=== PATIENT | male | born 1980 | race Asian ===

== ENCOUNTER → 2023-01-14 09:11 | Outpatient (CLI) | payer OTHER, SELFPAY ==
[2023-01-14 10:41] LABS: Alanine Aminotransferase 52 IU/L (<50); Albumin 4.6 g/dL (3.5-5.0); Albumin Globulin Ratio 1.6 (1.0-2.8); Alkaline Phosphatase 74 U/L (38-126); Aspartate Aminotransferase 29 IU/L (17-59); Bilirubin Total 0.5 mg/dL (0.2-1.3); Bilirubin Unconjugated 0.4 mg/dL (0.0-1.1); Globulin 2.9 g/dL (1.7-4.1); HEMOLYSIS < 15 (0-50); Total Protein 7.5 g/dL (6.3-8.2)
[2023-01-14 11:12] LABS: Hepatitis B Surface Antigen NEGATIVE s/c (NEGATIVE)
[2023-01-15 03:04] LABS: Hepatitis B Surf AB Quant >1000.0 mIU/mL (Immunity>9.9)
[2023-01-15 06:10] LABS: Hepatitis BE Antigen Negative (Negative)
[2023-01-16 10:09] LABS: Hepatitis Be Antibody POSITIVE
[2023-01-19 07:36] LABS: Hepatitis B Virus DNA HBV DNA not detected IU/mL (.)
== END ==
PROVIDERS: PCP Physician Assistant Medical; Referring Provider Internal Medicine Gastroenterology; Visit Provider Internal Medicine Gastroenterology
DX: B19.0 Unspecified viral hepatitis with hepatic coma (principal)
CPT/HCPCS: 36415; 80076; 86706; 86707; 87340; 87350; 87517